=== PATIENT | male | born 1985 ===

== ENCOUNTER 2022-02-02 15:03 | Outpatient (REF) | payer OTHER, SELFPAY ==
[2022-02-02 16:35] LABS: Anion Gap 7.8 mmol/L (3-11); BUN 17 mg/dL (7-18); CO2 30.2 mmol/L (21.0-32.0); CREATININE 1.1 mg/dL (0.70-1.30); Calcium 9.3 mg/dL (8.5-10.1); Chloride 104 mmol/L (98-107); Glucose 84 mg/dL (74-106); Potassium 4.4 mmol/L (3.5-5.1); Sodium 142 mmol/L (136-145)
== END 2022-02-02 15:04 | disposition home or self-care (01) ==
LOC: NCHCN 15:03
PROVIDERS: Visit Provider Registered Nurse
DX: I10 Essential (primary) hypertension (principal)
CPT/HCPCS: 80048

== ENCOUNTER 2023-11-03 15:51 | Outpatient (REF) | payer OTHER, SELFPAY ==
[2023-11-03 15:36] LABS: HCT 45.6 % (40.0-50.0); MCH 30.9 pg (27.0-33.0); MCHC 35.1 % (32.0-36.0); MCV 88 fL (80-95); MPV 9.9 fL (8.0-11.0); Platelet Count 332 10^3/uL (130-400); RBC 5.17 10^6/uL (4.36-5.78); RDW 12.1 % (11.8-14.1); RDW-SD 39.1 fL; WBC 8.36 10^3/uL (4.4-10.8)
[2023-11-03 16:03] LABS: ALT 59 U/L (16-63); AST 24 U/L (15-37); Albumin 4.1 g/dL (3.4-5.0); Alkaline Phosphatase 180 U/L (46-116); Anion Gap 11.2 mmol/L (3-11); BUN 15 mg/dL (7-18); Bilirubin, Total 0.6 mg/dL (0.2-1.0); CO2 25.8 mmol/L (21.0-32.0); CREATININE 0.8 mg/dL (0.70-1.30); Calcium 9.3 mg/dL (8.5-10.1); Calculated LDL 198 mg/dL (<100); Chloride 104 mmol/L (98-107); Cholesterol 268 mg/dL (<200); Estimated GFR 116.17 (mL/min/1.73m2); Folate 18.6 ng/mL (8.6-20.0); Glucose 95 mg/dL (74-106); HDL Cholesterol 34 mg/dL (40-60); Potassium 4.3 mmol/L (3.5-5.1); Sodium 141 mmol/L (136-145); Total Protein 7.3 g/dL (6.4-8.2); Triglyceride 183 mg/dL (<150)
== END 2023-11-03 15:52 | disposition home or self-care (01) ==
LOC: NCHCN 15:51
PROVIDERS: PCP Family Medicine; Visit Provider Family Medicine
DX: I10 Essential (primary) hypertension (principal); E78.2 Mixed hyperlipidemia; E61.2 Magnesium deficiency; E55.9 Vitamin D deficiency, unspecified; F10.10 Alcohol abuse, uncomplicated
CPT/HCPCS: 80053; 80061; 82306; 85027; 82746; 83735